=== PATIENT | female | born 1985 | race Caucasian/White ===

== ENCOUNTER 2019-05-16 20:16 | Inpatient (IN) | payer BC ==
[2019-05-16 22:23] LABS: ADD UMIC YES; UR ASCORBIC ACID 20 mg/dL (NEGATIVE); UR BACTERIA FEW /HPF (NONE SEEN); UR BILIRUBIN (Dip) NEGATIVE (NEGATIVE); UR BLOOD (Dip) 3+ mg/dL (NEGATIVE); UR CALCIUM OXALATE CRYSTAL MANY /HPF (NONE SEEN); UR CLARITY CLOUDY (CLEAR); UR COLOR YELLOW (YELLOW); UR GLUCOSE (Dip) NEGATIVE (NEGATIVE); UR KETONES (Dip) TRACE mg/dL (NEGATIVE); UR LEUKOCYTE ESTERASE (Dip) 2+ Leu/ul (NEGATIVE); UR MUCUS FEW /HPF (NONE SEEN); UR NITRITE (Dip) NEGATIVE (NEGATIVE); UR RBC 4 /HPF (0-5); UR SPECIFIC GRAVITY (Dip) 1.023 (1.003-1.030); UR SQUAMOUS EPITHELIAL CELL FEW /HPF (FEW); UR TOTAL PROTEIN (Dip) NEGATIVE (NEGATIVE); UR UROBILINOGEN (Dip) NEGATIVE (NEGATIVE); UR WBC 125 /HPF (0-5)
[2019-05-16] MEDS ORDERED: METHYLERGONOVINE 0.2 MG INJ IM (22:30)
[2019-05-16] MEDS ORDERED: MISOPROSTOL 200 MCG TAB PR (22:30)
[2019-05-16] MEDS ORDERED: IBUPROFEN 600 MG TAB PO (22:30)
[2019-05-16] MEDS ORDERED: CARBOPROST 250 MCG INJ IM (22:30)
[2019-05-16] MEDS ORDERED: OXYTOCIN 30 UNITS/LR 500 ML IV ×2 (22:30)
[2019-05-16] MEDS ORDERED: BUTORPHANOL 2 MG INJ IV ×2 (22:30)
[2019-05-16 22:36] LABS: ADD MAN DIFF? NO
[2019-05-16 22:39] LABS: BASOPHILS % 0.1 % (0.0-2.0); EOSINOPHILS # 0.2 10^3/ul (0.0-0.5); HEMATOCRIT 37.3 % (37.0-47.0); HEMOGLOBIN 12.3 g/dl (12.0-16.0); LYMPHOCYTES # 1.1 10^3/ul (0.8-2.9); LYMPHOCYTES % 15.4 % (15.0-51.0); MEAN CORPUSCULAR HEMOGLOBIN 31.9 pg (29.0-33.0); MEAN CORPUSCULAR VOLUME 96.6 fl (82.0-101.0); MEAN PLATELET VOLUME 9.3 fl (7.4-10.4); MONOCYTE # 0.5 10^3/ul (0.3-0.9); MONOCYTES % 7.8 % (0.0-11.0); NEUTROPHIL # 5.1 10^3/ul (1.6-7.5); NEUTROPHILS % 73.3 % (39.0-77.0); PLATELET COUNT 175 10^3/UL (140-415); RED BLOOD COUNT 3.86 10^6/ul (4.20-5.40); RED CELL DISTRIBUTION WIDTH 13.8 % (11.5-14.5)
[2019-05-16 22:39] LABS: WHITE BLOOD COUNT 6.9 10^3/ul (4.8-10.8)
[2019-05-16] MEDS: LACTATED RINGER'S 1,000 ML IV ×2 (22:53→23:16)
[2019-05-16] MEDS: AMPICILLIN 2 GM/NS (PMX) 100 ML IV (22:53)
[2019-05-16 22:58] LABS: INR 0.84; PROTIME 11.6 Sec (11.9-14.9); PT RATIO 0.9
[2019-05-16 22:59] LABS: PARTIAL THROMBOPLASTIN TIME 28.7 Sec (23.0-35.0)
[2019-05-16] MEDS ORDERED: FENTAnyl 2MCG/ML-ROPIV 0.2% 100 ML (23:14)
[2019-05-16 23:26] LABS: HEPATITIS B SURFACE ANTIGEN NEGATIVE (NEGATIVE)
[2019-05-16] MEDS ORDERED: NALOXONE (0.4 MG/ML) INJ IV (23:30)
[2019-05-16] MEDS ORDERED: FENTAnyl 2MCG/ML-ROPIV 0.2% 100 ML BAG EPI (23:30)
[2019-05-16] MEDS ORDERED: ONDANSETRON 4 MG INJ (23:44)
[2019-05-17] MEDS: LACTATED RINGER'S 1,000 ML IV ×3 (00:13→11:24)
[2019-05-17] MEDS: OXYTOCIN 30 UNITS/LR 500 ML IV ×4 (02:35→23:00)
[2019-05-17] MEDS ORDERED: FENTAnyl 2MCG/ML-ROPIV 0.2% 100 ML BAG EPI (06:00)
[2019-05-17] MEDS: AMPICILLIN 1 GM/NS (PMX) 50 ML IV ×2 (06:53→11:24)
[2019-05-17] MEDS: LIDOCAINE 1% (MPF) 30 ML INJ INJ (12:36)
[2019-05-17] MEDS ORDERED: HYDROCODONE/APAP (5/325) TAB PO (13:00)
[2019-05-17] MEDS ORDERED: OXYTOCIN 30 UNITS/LR 500 ML IV (13:00)
[2019-05-17] MEDS ORDERED: METHYLERGONOVINE 0.2 MG INJ IM (13:00)
[2019-05-17] MEDS ORDERED: MISOPROSTOL 200 MCG TAB PR (13:00)
[2019-05-17] MEDS ORDERED: CARBOPROST 250 MCG INJ IM (13:00)
[2019-05-17] MEDS: LACTATED RINGER'S 1,000 ML IV* ×2 (15:30→21:00)
[2019-05-17 16:10] LABS: RAPID PLASMA REAGIN NONREACTIVE (NR)
[2019-05-17] MEDS: IBUPROFEN 600 MG TAB PO (17:08)
[2019-05-17] MEDS: BENZOCAINE 20% 56 ML SPRAY TOP (17:09)
[2019-05-17] MEDS: LANOLIN HPA 1 PKT TOP (17:09)
[2019-05-17] MEDS: valACYclovir 500 MG TAB PO (21:25)
[2019-05-18] MEDS: IBUPROFEN 600 MG TAB PO ×5 (00:53→23:46)
[2019-05-18] MEDS: LACTATED RINGER'S 1,000 ML IV* ×3 (01:41→21:00)
[2019-05-18 08:13] LABS: ADD MAN DIFF? NO
[2019-05-18 08:16] LABS: WHITE BLOOD COUNT 12.3 10^3/ul (4.8-10.8)
[2019-05-18 08:16] LABS: BASOPHILS % 0.2 % (0.0-2.0); EOSINOPHILS # 0.1 10^3/ul (0.0-0.5); EOSINOPHILS % 1.1 % (0.0-7.0); HEMATOCRIT 29.9 % (37.0-47.0); LYMPHOCYTES % 8.4 % (15.0-51.0); MEAN CORPUSCULAR HEMOGLOBIN 32.2 pg (29.0-33.0); MEAN CORPUSCULAR HGB CONC 33.4 g/dl (32.0-37.0); MEAN CORPUSCULAR VOLUME 96.1 fl (82.0-101.0); MONOCYTE # 0.7 10^3/ul (0.3-0.9); NEUTROPHIL # 10.3 10^3/ul (1.6-7.5); NEUTROPHILS % 83.8 % (39.0-77.0); PLATELET COUNT 149 10^3/UL (140-415); RED BLOOD COUNT 3.11 10^6/ul (4.20-5.40); RED CELL DISTRIBUTION WIDTH 14.3 % (11.5-14.5)
[2019-05-18] MEDS: valACYclovir 500 MG TAB PO (21:31)
[2019-05-19] MEDS: LACTATED RINGER'S 1,000 ML IV* ×2 (05:00→13:00)
[2019-05-19] MEDS: IBUPROFEN 600 MG TAB PO ×2 (05:23→12:12)
[2019-05-19] MEDS: DIPHTH/TET/ACEL PERTUSS (ADULT) 0.5 ML VIAL IM* (12:11)
[2019-05-19] MEDS: LANOLIN HPA 1 PKT TOP (15:39)
== END 2019-05-19 16:45 | disposition home or self-care (01) | DRG 807 ==
LOC: OBT 20:16 → L-D 20:17 → OBT 21:50 → L-D 21:50 → PP1 05-17 15:54
PROC: 10E0XZZ Delivery of Products of Conception, External Approach (ICD-10-PCS; principal; 2019-05-17)
PROC: 0HQ9XZZ Repair Perineum Skin, External Approach (ICD-10-PCS; 2019-05-17)
DX: O48.0 Post-term pregnancy (principal); O70.0 First degree perineal laceration during delivery; O69.81X0 Labor and delivery complicated by cord around neck, without compression, not applicable or unspecified; Z37.0 Single live birth; Z3A.40 40 weeks gestation of pregnancy
CPT/HCPCS: 62322; 81001; 85025; 85610; 85730; 86592; 86850; 86900; 86901; 87340; 90715; 99464